=== PATIENT | male | born 1965 | race Caucasian/White ===

== ENCOUNTER 2016-09-13 20:02 | Observation (INO) | payer SELFPAY ==
[~2016-09-13] VITALS: Ht 188 cm; Wt 109.1 kg
--- NOTE | 2016-09-13 21:28 | DIAGNOSTIC IMAGING REPORT ---
PROCEDURE: XR CHEST 1 VIEW INDICATION: CHEST PAIN, initial encounter TECHNIQUE: Portable AP view 08:53 p.m. COMPARISON: None. FINDINGS: Poor inspiration. Lungs are clear. Heart and mediastinum are normal. Left AC joint degenerative changes. IMPRESSION: 1. Negative chest.
[2016-09-14] VITALS (7 sets, daily range): BP systolic 120–145; BP diastolic 64–95
--- NOTE | 2016-09-14 00:48 | Progress Note ---
Subjective General Admission History and Physical Examination Patient Name: Edvin Tineo Admission Date: September 14, 2016 Primary Care Provider: None Attending Physician: Niles Dee M.D. Admitting Physician: Niles Dee M.D. SUBJECTIVE Historian: Patient Reliability: Fair Chief Complaint: Chest pain History of Present Illness: The patient is a 51-year-old male with a significant past medical history of type 2 diabetes mellitus, hypertension, who presented to [facility] emergency department on the day prior to admission secondary to complaints of chest discomfort. [facility] ER evaluation was consistent with poorly controlled diabetes mellitus, chest pain rule out ACS. Secondary to the above, the patient was admitted by Niles Dee M.D. for further evaluation and treatment The history of present was began on the day of admission when the patient was apparently incarcerated in the [place] half-way. He developed substernal chest pain. There was no radiation of the pain. He stated the pain was increased by chest wall movement, and deep inspiration/coughing. He denied shortness of breath or diaphoresis. He has experienced nausea and vomited 3. Secondary to the above the patient was transported by [place] police to [facility] emergency department for further evaluation and treatment. [facility] ER evaluation showed normal cardiac enzymes, no acute ST-T wave changes. The patient experienced no significant change with the use of aspirin/nitroglycerin to his pain. Repeat EKG was unremarkable. Secondary to the patient's history he was admitted with a diagnosis of chest pain rule out ACS, poorly controlled diabetes mellitus for further evaluation and treatment. PAST MEDICAL HISTORY Illnesses: 1. Diabetes mellitus 2. Hypertension Allergies: 1. Morphine Medications: 1. Metformin 1000 mg by mouth twice a day (not recently taking) 2. Lisinopril 10 mg by mouth daily (not recently taking) 3. Neurontin 800 mg by mouth 3 times a day 4. Tramadol 50 mg by mouth every 6 hours when necessary pain 5. Vicodin 10/325 one by mouth every 6 hours when necessary pain Surgery: 1. Back surgery 2. Tonsillectomy Injuries: 1. Head injury Hospitalizations: 1. For above surgery and medical problems FAMILY HISTORY Parents: 1. Father, , 55, renal failure, 2. Mother, , 75, CVA Siblings: 1. The patient has 2 female siblings with history of COPD, liver disease, alcohol abuse Children: 1. Male, living, 20, healthy Other significant family history: None SOCIAL HISTORY 1. Marital Status: Single 2. Denominational: Sara 3. Education: 12th grade, GED 4. 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 Occupational health exposures: None HABITS 1. Tobacco: Previous use, amount unknown 2. Drugs: Marijuana 3. Alcohol: Occasional alcohol use no recent 4. Caffeine: 2-3 cups per day HEALTH SUPERVISION Item/Test 1. Not reviewed IMMUNIZATIONS: 1. Pneumococcal: 2016 2. Influenza: 2016 3. Tetanus: Unknown REVIEW OF SYSTEMS Remarkable for those things stated in the history of present illness and past medical history. Seventeen point review of system completed with the following notable findings: Eyes: Corrective lenses Nose: Discharge Cardiovascular: Hypertension Genitourinary: Urinary hesitancy Gastrointestinal: Diarrhea Musculoskeletal: Back ache Neurological: Peripheral neuropathy Psychological: Anxiety, insomnia Physical Exam General Appearance Alert, Oriented X3, Cooperative, No acute distress HEENT Atraumatic, PERRLA, EOMI, Moist mucous membranes Lungs Clear to auscultation, Normal air movement Neck Supple, No JVD, No masses Cardiovascular Regular rate and rhythm, Normal S1 and S2, No murmurs, gallops, rubs Abdomen Normal bowel sounds, Soft, No tenderness, No guarding Extremities No cyanosis, No clubbing, No edema Neurological Cranial nerves intact, Strength 5/5 x4 ext's, No lateralizing signs Psych/Mental Status Mental status normal, Mood normal LAB Results Laboratory Tests 09/13 Blood Gas Sample Site RR Total CO2 (24.0 - 30.0 mmol/L) 20.2 ABG pH (7.35 - 7.45) 7.47 ABG pCO2 at Pt Temp (35 - 45 mmHg) 26.5 ABG pO2 at Pt Temp (80.0 - 100.0 mmHg) 103.0 ABG HCO3 (20.0 - 26.0 mmol/L) 19.4 ABG O2 Sat Calc/Jimbo (95.1 - 100.0 %) 99.0 ABG Base Excess (-6.0 - -6.0 mmol/L) -3.4 ABG Reduced Hgb (%) 1.0 ABG Carboxyhemoglobin (0.5 - 1.5 %) 1.3 ABG Methemoglobin (0.4 - 1.5 %) 0.3 Caden Test YES Other Total Hgb (14.0 - 18.0 g/dL) 15.1 A-a O2 Gradient (7.0 - 14.0 mmHg) 17.9 Hgb O2 Saturation (95.0 - 100.0 %) 97.4 Respiration Rate (/MIN) 20 Vent Mode RA FiO2 (20 - 101 %) 21 Chemistry Plasma Sodium (136 - 145 mmol/L) 135 Plasma Potassium (3.5 - 5.1 mmol/L) 4.0 Plasma Chloride (98 - 107 mmol/L) 100 CO2 (Enzymatic) (21 - 32 mmol/L) 25 BUN (7 - 18 mg/dL) 16 Creatinine (0.6 - 1.3 mg/dL) 1.0 Est GFR ( Amer) (mL/min) >60 Est GFR (Non-Af Amer) (mL/min) >60 Glucose (70 - 110 mg/dL) 317 Plasma Calcium (8.5 - 10.1 mg/dL) 9.8 Plasma Magnesium (1.8 - 2.4 mg/dL) 2.1 Total Bilirubin (0.0 - 1.0 mg/dL) 0.7 AST (15 - 37 U/L) 17 ALT (12 - 78 U/L) 34 Alkaline Phosphatase (46 - 116 U/L) 92 Creatine Kinase (24 - 260 U/L) 193 Troponin (0.00 - 1.5 ng/mL) <0.05 B-Natriuretic Peptide (5 - 100 pg/ml) 12.5 Total Protein (6.4 - 8.2 g/dL) 8.9 Albumin (3.3 - 5.0 g/dL) 4.6 Coagulation D-Dimer, Quantitative (0.27 - 0.52 ug/mLFEU) 0.39 Hematology WBC (4.5 - 11.5 K/uL) 12.5 RBC (4.50 - 5.90 M/uL) 5.40 Hgb (13.5 - 17.5 gm/dL) 16.5 Hct (41.0 - 53.0 %) 50.0 MCV (80 - 100 fL) 93 MCH (26 - 34 pg) 31 RDW (11.6 - 14.8 %) 13.9 Neut % (Auto) (50 - 75 %) 76.8 Lymph % (Auto) (25 - 40 %) 17.7 [place] % (Auto) (3 - 14 %) 4.6 Eos % (Auto) (0 - 4 %) 0.1 Baso % (Auto) (0 - 2 %) 0.8 Plt Count, EDTA (150 - 400 K/uL) 406 PUBS MCHC (31 - 37 g/dL) 33 Toxicology Acetone, Qual (NEGATIVE) POSITIVE Imaging Chest X-Ray IMPRESSION: 1. Negative chest. Dictated by: BENEDICTO SUGGS MD D: PAT;09/13/[id number] Assessment and Plan Problem List 1. Chest pain Status Acute Onset Date Unknown Plan -Patient presents with findings of chest pain, rule out ACS -Serial troponin/CPK/EKG -Aspirin 325 mg by mouth daily -Lovenox -Nitroglycerin paste 1.5 inches topically every 6 hours -Lopressor 50 mg by mouth every 8 hours -Lipid profile in a.m. 2. Hypertension Status Chronic Onset Date Unknown Plan -Patient with history of hypertension -Patient's blood pressure poorly controlled at this time -Lopressor 50 mg by mouth every 8 hours -Nitroglycerin 1.5 inches topically every 6 hours -Begin BECKY inhibitor in a.m. -Monitor 3. Diabetes mellitus Status Chronic Onset Date Unknown Plan -Patient with long-standing history of diabetes mellitus -Check hemoglobin A1c in a.m. -Insulin sliding scale -Outpatient diabetic education 4. Back pain Status Chronic Onset Date Unknown Plan -Patient with chronic back pain -Continue Vicodin 5/325 1-2 by mouth every 4 hours when necessary pain 5. Diabetic neuropathy Status Chronic Onset Date Unknown Plan -Patient with history of diabetic neuropathy -Neurontin 300 mg by mouth 3 times a day with increasing dose as warranted -Monitor 6. Hypercholesterolemia Status Chronic Onset Date Unknown Plan -Patient with history of hypercholesterolemia -Check lipid profile in a.m. -Appropriate use of statins/cholesterol-lowering agents based on lipid profile -Low-cholesterol diet/low fat diet Current status: Fair, unstable Anticipated discharge date: Anticipated discharge in a.m. Anticipated discharge placement: Home Patient care time: Time spent in chart review, patient interview, physical exam, CPOE, and care documentation: 70 minutes Visit to patient today: 1 Complexity of care: High E&M Codes Admission: Obsv-Comp/High/[id number]
[2016-09-14] MEDS ORDERED: LISINOPRIL10 MG PO (01:44)
[2016-09-14] MEDS ORDERED: NORCO1 TAB PO (01:45)
[2016-09-14] MEDS ORDERED: METFORMIN HCL500 MG PO (01:45)
--- NOTE | 2016-09-14 02:59 | ED ORDER SUMMARY ---
..... Patient: NANCY GANDHI JR OrderSheet [facility] VisitID: [id number] [place] [address] 51y, M Registration Date/Time: 09/13/2016 ORDER SHEET Weight: 108.8 kg (stated) Allergies: No Known Drug Allergy GENERAL ORDERS: Chest 1V Urgent (20:35 09/13/2016 Douglas Amin) (Ack 20:37 TBergley) (21:22 MCampbell) Cardiac Panel Stat (20:36 09/13/2016 Douglas Amin) (Ack 20:37 TBergley) (20:44 EInderbitzen R.N.) BNP Urgent (20:36 09/13/2016 Douglas Amin) (Ack 20:37 TBergley) (20:44 EInderbitzen R.N.) D-Dimer Urgent (20:36 09/13/2016 Douglas Amin) (Ack 20:37 TBergley) (20:44 EInderbitzen R.N.) Acetone, Serum Urgent (20:36 09/13/2016 Douglas Amin) (Ack 20:37 TBergley) (20:44 EInderbitzen R.N.) ABG (G) Urgent (21:24 09/13/2016 Douglas Amin) (Ack 21:25 TBergley) (21:44 TBergley) EKG - ER Repeat Stat (22:38 09/13/2016 Olimpia DAVIDSON) (23:05 Brianekimana) POC Glucose (22:39 09/13/2016 Olimpia DAVIDSON) (22:48 EInderbitzen R.N.) Cardiac Panel Stat (01:51 09/14/2016 Carol Ann Wetzel verbal order read back to Douglas Amin) (1:51 Carol Ann R.N.) MEDICATION ORDERS: Aspirin PO 325 mg (Do not crush or chew, NOW) (20:35 09/13/2016 Douglas Amin) (21:12 EInderbitzen R.N.) NitroGLYCERIN Paste Topical 1 in. (NOW, to ) (20:35 09/13/2016 Douglas Amin) (21:12 EInderbitzen R.N.) NitroGLYCERIN SL 0.4 mg (NOW, x3 PRN Chest Pain) (22:35 09/13/2016 Olimpia DAVIDSON) (22:54 EInderbitzen R.N.) IV FLUIDS: IV NS : initial bolus none -, then 1000 mL/hr for X1 (NOW) (20:35 09/13/2016 Douglas Amin) (21:12 EInderbitzen R.N.) Insulin Reg IV 8 units (HIGH ALERT MEDICATION, NOW) (21:13 09/13/2016 Douglas Amin) (22:07 EInderbitzen R.N.) Toradol IV 30 mg (NOW) (21:23 09/13/2016 Douglas Amin) (22:08 EInderbitzen R.N.) ORDER SHEET NOTES: [Electronically signed by Hayder Avalos R.N. (02:59 09/14/2016)] [Electronically signed by Se Mancia MD (06:58 09/14/2016)] [Electronically locked/signed by Hayder Avalos R.N. (02:59 09/14/2016)]
--- NOTE | 2016-09-14 02:59 | ED CLINICAL REPORT ---
Clinical Report - Physicians/Mid Levels [facility] [address] [place] [address] 09/13/2016 20:03 Patient: NANCY GANDHI JR Time Seen: 2024. Arrived- By private vehicle. [facility] Historian- patient. HISTORY OF PRESENT ILLNESS Chief Complaint: CHEST PAIN. At its maximum, severity described as moderate. When seen in the E.D., severity described as moderate. Modifying factors. Not worsened by anything. Not relieved by anything. This started just prior to arrival Pt is currently incarcerated at the [facility]. At 5 pm he became dizzy. He has been off balance for one month. Chest hurting - at 630 pm he was resting and noticed a "knot in the chest" comes and goes with 40 -60 minute episodes . Now 5/10 Currently the chest pain is worse than his head ache, back ache or dizziness. and is still present. Onset during rest. It is described as pressure and Knot like and it is described as located in the central chest area. No radiation. The patient has had nausea. He has had vomiting (3 times). No diaphoresis. Similar symptoms previously: None. Recent medical care: Not recently seen/assessed. REVIEW OF SYSTEMS No fever, chills, cough, pedal edema or calf pain. No chills, fever, eye irritation, ear pain or cough. No diarrhea or difficulty with urination. He has had abdominal pain and pain, vomiting and back pain. "Heart backwards" by patient history but not our Xray. All systems otherwise negative, except as recorded above. PAST HISTORY PCP: None No local Hypertension. Diabetes Mellitus. ADDITIONAL SURGERIES: Back Surgery. Risk factors for heart disease- smoking, diabetes, elevated cholesterol and hypertension. Denies the following risk factors for heart disease - family history of heart disease. SOCIAL HISTORY Former smoker. Occasional alcohol use. No drug use. Residence: Homeless as of several days ago. He has had no meds for weeks. ADDITIONAL NOTES The nursing notes have been reviewed with agreement regarding the chief complaint, PMH and patient medications and allergies. PHYSICAL EXAM Vital Signs: 09/13/2016 20:04 BP: 178/115. HR: 109. RR: 18. O2 saturation: 100%. Temp: 98.1 F. Have been reviewed. Hypertensive. Tachycardic. Respiratory rate normal. Temperature normal. Oxygen saturation normal. Appearance: Alert. Oriented X3. No acute distress. Eyes: Eyes normal inspection. ENT: Dry mucous membranes present. Neck: Normal inspection. CVS: Normal heart rate and rhythm. Heart sounds normal. Respiratory: No respiratory distress. Breath sounds normal. Abdomen: Soft. Mild tenderness diffusely. No guarding or rebound tenderness. Bowel sounds normal. No organomegaly. No mass. No rebound tenderness or guarding. Skin: Skin warm and dry. Normal skin color. No rash. Normal skin turgor. Extremities: No calf tenderness. No lower extremity edema. Neuro: Oriented X 3. No motor deficit. LABS, X-RAYS, AND EKG EKG: EKG time: (2009). No acute ischemia. Narrow-complex tachycardia (ventricular rate 109). Sinus tachycardia. Normal P waves. Normal ASHIA. Normal QRS complex. Normal axis. Normal ST and T waves. Prolonged QTc (487). Prior EKG unavailable. The study has been interpreted contemporaneously by me. The study has been independently viewed by me. The EKG appears to be a good tracing. I agree with and confirm the computer reading of the EKG. Interpretation time: 2010. Chest X-ray: No acute disease. No infiltrate. (PROCEDURE: XR CHEST 1 VIEW INDICATION: CHEST PAIN, initial encounter TECHNIQUE: Portable AP view 08:53 p.m. COMPARISON: None. FINDINGS: Poor inspiration. Lungs are clear. Heart and mediastinum are normal. Left AC joint degenerative changes. IMPRESSION: 1. Negative chest. Electronically Final signed by:Marco A Villalobos MD 09/13/2016 9:28:16 PM). Views: AP. Technique: good. The X-rays were independently viewed by me and interpreted contemporaneously by me. Prior films were not available for comparison. Interpretation time: 21:10. Laboratory Tests: CBC w Diff: (ANDERSON: 09/13/2016 20:09) ( MsgRcvd 09/13/2016 20:46) Final results Test Result Flag Units (Reference) WHITE BLOOD COUNT 12.5 H K/uL (4.5-11.5) RED BLOOD COUNT 5.40 M/uL (4.50-5.90) HEMOGLOBIN 16.5 gm/dL (13.5-17.5) HEMATOCRIT 50.0 % (41.0-53.0) MEAN CELL VOLUME 93 fL (80-100) MEAN CORPUSCULAR HGB 31 pg (26-34) MEAN CORPUSCULAR HGB CONC 33 g/dL (31-37) RED CELL DISTRIBUTION WIDTH 13.9 % (11.6-14.8) PLATELET COUNT 406 H K/uL (150-400) NEUTROPHIL % 76.8 H % (50-75) LYMPH % 17.7 L % (25-40) MONO % 4.6 % (3-14) EOSINOPHIL % 0.1 % (0-4) BASOPHIL % 0.8 % (0-2) [id number]: (ANDERSON: 09/13/2016 20:09) ( [facility] [place] Final results Test Result Flag Units (Reference) D-DIMER QUANTITATIVE 0.39 ug/mLFEU (0.27-0.52) The primary value of this quantitative assay relates toits negative predictive value (i.e. exclusion) of pulmonaryembolism/deep vein thrombosis/DIC.Elevated levels of d-dimer may also occur with:, age, cancer, inflammation, liver disease,post-op, infection, hematoma, coronary disease, peripheralarteriopathy, bleeding disorders and thrombolytic treatment.Results should be correlated with other clinical andradiological data.Testing Methodology: Latex Immunoassay BNP: (ANDERSON: 09/13/2016 20:09) ( [facility] [place] 21:20) Final results Test Result Flag Units (Reference) B-TYPE NATRIURETIC PEPTIDE 12.5 pg/ml (5-100) Acetone, Serum: (ANDERSON: 09/13/2016 20:09) ( MsgRcvd 09/13/2016 20:47) Final results Test Result Flag Units (Reference) ACETONE, SERUM QUALITATIVE POSITIVE (NEGATIVE) CHEM 13 PANEL: (ANDERSON: 09/13/2016 20:09) ( MsgRcvd 09/13/2016 20:57) Final results Test Result Flag Units (Reference) GLUCOSE 317 H mg/dL (70-110) BUN 16 mg/dL (7-18) CREATININE 1.0 mg/dL (0.6-1.3) Estimated GFR >60 mL/min Estimated GFR- >60 mL/min Note: Persistent reduction over 3 months in eGFR<60 mL/min/1.73 m2 defines CKD. Patients with eGFR values>=60 mL/min/1.73 m2 may also have CKD if evidence ofpersistent proteinuria. Additional information may be foundat www.kidney.org. SODIUM 135 L mmol/L (136-145) POTASSIUM 4.0 mmol/L (3.5-5.1) CHLORIDE 100 mmol/L (98-107) CARBON DIOXIDE 25 mmol/L (21-32) CALCIUM 9.8 mg/dL (8.5-10.1) TOTAL PROTEIN 8.9 H g/dL (6.4-8.2) ALBUMIN 4.6 g/dL (3.3-5.0) BILIRUBIN, TOTAL 0.7 mg/dL (0.0-1.0) ALKALINE PHOSPHATASE 92 U/L (46-116) AST (SGOT) 17 U/L (15-37) ALT (SGPT) 34 U/L (12-78) MAGNESIUM 2.1 mg/dL (1.8-2.4) CPK 193 U/L (24-260) TROPONIN I <0.05 ng/mL (0.00-1.5) TROPONIN REFERENCE RANGE:<0.1 NEGATIVE0.1-1.5 INDETERMINANT>1.5 POSITIVE ABG: (ANDERSON: 09/13/2016 21:24) ( MsgRcvd 09/13/2016 21:41) Final results Test Result Flag Units (Reference) FIO2 21 % (20-101) ABG MODE OF DELIVERY RA MODIFIED ARIEL TEST POSITIVE? YES ABG PATIENT RESP RATE 20 /MIN ARTERIAL BLOOD GAS SITE RR ARTERIAL BLOOD GAS pH 7.47 H (7.35-7.45) ABG PCO2 26.5 L mmHg (35-45) ABG PO2 103.0 H mmHg (80.0-100.0) ABG BASE EXCESS -3.4 H mmol/L (-6.0--6.0) ABG HCO3 19.4 L mmol/L (20.0-26.0) ABG TCO2 20.2 L mmol/L (24.0-30.0) ABG [id number] 17.9 H mmHg (7.0-14.0) *NOTE: Normal rangeis based on aFIO2 of 21% ABG SAT O2 99.0 % (95.1-100.0) ABG TOTAL HEMOGLOBIN 15.1 g/dL (14.0-18.0) ABG O2 HEMOGLOBIN 97.4 % (95.0-100.0) ABG CARBOXYHEMOGLOBIN 1.3 % (0.5-1.5) ABG METHEMOGLOBIN 0.3 L % (0.4-1.5) ABG RHEMOGLOBIN 1.0 % . PROGRESS AND PROCEDURES Course of Care: Symptoms much better. Nitroglycerin 1 inch paste given. 21:25 09/13/16. case signed out to Dr. Mancia, likely in DKA, awaiting ABG. 22:14 09/13/16. Assumed Care from Dr Echevarria due to change of shift. Independent history and physical exam done./ R MD Gavino 23:41 09/13/16. Discussed with Dr Dee 06:49 09/14/16. The patient's chest pain is relatively low risk for ACS but in this setting the patient needs to be admitted and ruled out. He has diabetes in poor control and has no meds or testing material. He does have positive ketones but his bicarb is normal. This is poorly controlled DM not DKA. His glucose dropped rapidly after one dose of insulin. In fact he is homeless as well. There is a significant social aspect to this patient's medical issues. Disposition orders written. Disposition: Admitted. CLINICAL IMPRESSION CHEST PAIN DIABETES POOR CONTROL HOMELESSNESSNESS. (Electronically signed by Se Mancia MD 09/14/2016 6:58) Addenda for NANCY GANDHI JR VisitID: [id number] Date: 09/13/2016 09/14/2016 5:18 I personally performed the procedure as documented. pt admitted to hospital (Electronically signed by Hayder Avalos R.N. - 09/14/2016 5:18)
--- NOTE | 2016-09-14 02:59 | ED NURSING NOTES ---
Clinical Report - Nurses [facility] [address] [place] [address] 09/13/2016 20:03 Patient: NANCY GANDHI JR TRIAGE Triage time 20:Sep 13 2016. Acuity: LEVEL 3. Chief Complaint: CHEST PAIN and (LEFT UPPER ANTERIOR CHEST). SEPSIS SCREEN: Sepsis Screen: negative. Negative (no infection suspected/documented). --20:11 Kamille Thomason R.N. 20:04 09/13/16. BP: 178/115. HR: 109. RR: 18. O2 saturation: 100%. Temp: 98.1 F. Pain level now 06/11. --20:11 Kamille Thomason R.N. Weight: 108.8 kg stated. Height/Length: 74 inches Per Patient. BMI: 30.8. --20:07 Kamille Thomason R.N. Medications [place] Oral (Tablet 10-325 mg) 1 tablet, TID. --20:04 Kamille Thomason R.N. Lisinopril Oral (Tablet 10 mg) 1 tablet, daily. --20:05 Kamille Thomason R.N. MetFORMIN HCl Oral (Tablet 1000 mg) 1 tablet, 2x a day. --20:05 Kamille Thomason R.N. Allergies No Known Drug Allergy. --20:04 Kamille Thomason R.N. Medication/allergy information source: the patient. --20:11 Kamille Thomason R.N. History Historian: patient. Arrived in police custody. ( INMATE AT [facility]). This started today. ( PAIN IN LEFT LOWER QUADRANT, 3 EPISODES OF VOMITING TODAY. PAIN IN LEFT UPPER CHEST. HX OF DIABETES, HTN). No difficulty breathing, sweating episodes, nausea, vomiting or fever. No cough. 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 PAST MEDICAL HX: Immunizations: has received pneumonia vaccine. Has not received seasonal influenza immunization. SOCIAL HX: Former smoker. No alcohol use or drug use. No infectious disease exposure. ABUSE ASSESSMENT: No report of abuse. SELF HARM ASSESSMENT: A self harm assessment was performed. The patient answered "no" to the question "Have you recently felt down, depressed, or hopeless?", "Have you noticed less interest or pleasure in doing things?", "Do you have thoughts of harming or killing yourself?", "Are you here because you tried to hurt yourself?", "Have you ever tried to hurt yourself before today?", "Have you recently had thoughts about harming or killing others?" and "Do you have any dangerous items in your possession?". FALL RISK ASSESSMENT: Fall risk assessment completed. No fall risk identified. NUTRITIONAL RISK ASSESSMENT: The nutritional risk assessment revealed no deficiencies. FUNCTIONAL ASSESSMENT: Functional assessment: no impairments noted. LEARNING NEEDS ASSESSMENT: The learning needs assessment revealed no barriers. SKIN INTEGRITY ASSESSMENT: Skin integrity risk assessment completed. No skin integrity risk identified. --20:11 Kamille Thomason R.N. PROBLEMS: Hypertension. Diabetes Mellitus. --20:10 Kamille Thomason R.N. ADDITIONAL SURGERIES: Back Surgery. --20:10 Kamille Thomason R.N. Interventions ID band on patient. --20:11 Kamille Thomason R.N. PHYSICAL ASSESSMENT 20:04 09/13/16. Ambulatory to room. ( Patient states has chest pain but points to his groin when asked to show where it hurts. Also points to left upper chest wall. Pain is reproducible with position changes). GENERAL / NEURO / PSYCH: Alert. Oriented X 4. HEENT: Mucous membranes are pink. RESPIRATORY: Respirations not labored. Chest nontender. Breath sounds within normal limits. CVS: Normal sinus rhythm noted. Pulses within normal limits. Capillary refill less than 2 seconds. GI / : Abdomen soft and nontender. EXTREMITIES: No lower extremity edema. SKIN: Skin is warm and dry. Normal skin turgor. --20:41 Kamille Thomason R.N. NURSING PROGRESS NOTES 20:11 09/13/2016 Site #1 started via IV in the left antecubital space with an 20g angiocath, with aseptic technique and good blood return; one attempt. Blood drawn: rainbow set. Labeled in the presence of the patient and sent to the lab. Saline lock flushed with 10 mL saline. --20:11 Kamille Thomason R.N. EKG time: (2009). EKG was ordered, performed by a tech and shown to the ED physician. --20:19 Gael Funes, ER Supervisor Chassis Assembly 20:03 09/13/16. The initial plan of care for this patient includes an assessment with efforts to address the presence of pain; impairment of the cardiovascular and gastrointestinal system. This plan of care was discussed with the patient. color television console monitor, pulse oximeter and NIBP monitor placed on patient; cardiac tech- Lead II; monitor alarms on. Patient gowned. Two patient identifiers checked. Call light placed in reach. Side rails up x 1. Bed placed in lowest position. Brakes of bed on. Patient ready for evaluation. --20:40 Kamille Thomason R.N. 20:40 09/13/2016 Started bag #1 1000 mL IV Fluids IV NS (Saline); at 1000 mL/hr over 1 hour(s) via site #1. Allergies verified and confirmed 5 rights. IV patency established. IV site checked: no pain, redness, or swelling. IV flushed thoroughly pre- and post-medication administration. --21:11 Kamille Thomason R.N. 20:40 09/13/2016 Aspirin PO Tablets 324 mg given. Allergies verified and confirmed 5 rights. (chewable tablets). --21:12 Kamille Thomason R.N. 20:42 09/13/2016 NITROGLYCERIN PASTE Topical Paste 1 inch. Applied to the right upper arm. --21:12 Kamille Thomason R.N. 21:13 09/13/16. Cardiac rhythm: normal sinus rhythm. The patient is calm and resting quietly. RESPIRATORY: No respiratory distress. CVS: Normal sinus rhythm noted. SKIN: Skin is warm and dry. --21:13 Kamille Thomason R.N. 21:13 09/13/16. BP: 132/86. HR: 88. RR: 16. O2 saturation: 100%. Pain level now 10. --21:13 Kamille Thomason R.N. 22:02 09/13/16. Cardiac rhythm: normal sinus rhythm. The patient is calm and resting quietly. Overall patient status is the same- he states feels the same. CVS: Normal sinus rhythm noted. SKIN: Skin is warm and dry. Skin color within normal limits. --22:02 Kamille Thomason R.N. 22:02 09/13/16. BP: 123/59. HR: 79. RR: 18. O2 saturation: 100%. Pain level now 810. --22:02 Kamille Thomason R.N. 22:05 09/13/2016 Insulin REG IVP 8 unit given over 30 hour(s) via site #1. Allergies verified and confirmed 5 rights. IV patency established. IV site checked: no pain, redness, or swelling. IV flushed thoroughly pre- and post-medication administration. IVP given by RN. --22:07 Kamille Thomason R.N. 22:06 09/13/2016 Toradol IVP 30 mg given over 1 minute(s) via site #1. Allergies verified and confirmed 5 rights. IV patency established. IV site checked: no pain, redness, or swelling. IV flushed thoroughly pre- and post-medication administration. IVP given by RN. --22:08 Kamille Thomason R.N. 22:48 09/13/16. Finger stick glucose: 113; result shown to the ED physician. --22:48 Kamille Thomason R.N. 22:52 09/13/2016 Nitroglycerin SL Tablets 0.4 mg given. Allergies verified and confirmed 5 rights. --22:54 Kamille Thomason R.N. 22:57 09/13/16. Cardiac rhythm: normal sinus rhythm. --22:57 Kamille Thomason R.N. 22:57 09/13/16. BP: 123/73. HR: 93. RR: 18. Pain level now 7/10. --22:57 Kamille Thomason R.N. EKG time: (2252 PM). EKG was ordered, performed by a tech and shown to the ED physician. --23:05 gNa Aviles ( sandwich provided per MD request. pt accepted. pt c/o chest "ache not pain exactly" denies pain, refused nitro.). --23:10 Hayder Avalos R.N. Finger stick glucose: 1250: 208 mg/dL. --00:55 Nga Aviles 01:01 09/14/16. Care transferred and report given (to CHELE White). --01:01 Kamille Thomason R.N. ( PATIENT GIVEN H+P FORM). --01:23 Gael Funes, MICHAEL Supervisor Chassis Assembly. Locked/Released at 09/14/2016 2:59 by Hayder Avalos R.N.
--- NOTE | 2016-09-14 02:59 | ED ORDER SUMMARY ---
..... Patient: NANCY GANDHI JR OrderSheet [facility] VisitID: [id number] [place] [address] 51y, M Registration Date/Time: 09/13/2016 ORDER SHEET Weight: 108.8 kg (stated) Allergies: No Known Drug Allergy GENERAL ORDERS: Chest 1V Urgent (20:35 09/13/2016 Douglas Amin) (Ack 20:37 TBergley) (21:22 MCampbell) Cardiac Panel Stat (20:36 09/13/2016 Douglas Amin) (Ack 20:37 TBergley) (20:44 EInderbitzen R.N.) BNP Urgent (20:36 09/13/2016 Douglas Amin) (Ack 20:37 TBergley) (20:44 EInderbitzen R.N.) D-Dimer Urgent (20:36 09/13/2016 Douglas Amin) (Ack 20:37 TBergley) (20:44 EInderbitzen R.N.) Acetone, Serum Urgent (20:36 09/13/2016 Douglas Amin) (Ack 20:37 TBergley) (20:44 EInderbitzen R.N.) ABG (G) Urgent (21:24 09/13/2016 Douglas Amin) (Ack 21:25 TBergley) (21:44 TBergley) EKG - ER Repeat Stat (22:38 09/13/2016 Olimpia DAVIDSON) (23:05 Brianekimana) POC Glucose (22:39 09/13/2016 Olimpia DAVIDSON) (22:48 EInderbitzen R.N.) Cardiac Panel Stat (01:51 09/14/2016 Carol Ann Wetzel verbal order read back to Douglas Amin) (1:51 Carol Ann R.N.) MEDICATION ORDERS: Aspirin PO 325 mg (Do not crush or chew, NOW) (20:35 09/13/2016 Douglas Amin) (21:12 EInderbitzen R.N.) NitroGLYCERIN Paste Topical 1 in. (NOW, to ) (20:35 09/13/2016 Douglas Amin) (21:12 EInderbitzen R.N.) NitroGLYCERIN SL 0.4 mg (NOW, x3 PRN Chest Pain) (22:35 09/13/2016 Olimpia DAVIDSON) (22:54 EInderbitzen R.N.) IV FLUIDS: IV NS : initial bolus none -, then 1000 mL/hr for X1 (NOW) (20:35 09/13/2016 Douglas Amin) (21:12 EInderbitzen R.N.) Insulin Reg IV 8 units (HIGH ALERT MEDICATION, NOW) (21:13 09/13/2016 Douglas Amin) (22:07 EInderbitzen R.N.) Toradol IV 30 mg (NOW) (21:23 09/13/2016 Douglas Amin) (22:08 EInderbitzen R.N.) ORDER SHEET NOTES: [Electronically signed by Hayder Avalos R.N. (02:59 09/14/2016)] [Electronically signed by Se Mancia MD (06:58 09/14/2016)] [Electronically locked/signed by Hayder Avalos R.N. (02:59 09/14/2016)]
--- NOTE | 2016-09-14 02:59 | ED NURSING NOTES ---
Clinical Report - Nurses [facility] [address] [place] [address] 09/13/2016 20:03 Patient: NANCY GANDHI JR TRIAGE Triage time 20:Sep 13 2016. Acuity: LEVEL 3. Chief Complaint: CHEST PAIN and (LEFT UPPER ANTERIOR CHEST). SEPSIS SCREEN: Sepsis Screen: negative. Negative (no infection suspected/documented). --20:11 Kamille Thomason R.N. 20:04 09/13/16. BP: 178/115. HR: 109. RR: 18. O2 saturation: 100%. Temp: 98.1 F. Pain level now 06/11. --20:11 Kamille Thomason R.N. Weight: 108.8 kg stated. Height/Length: 74 inches Per Patient. BMI: 30.8. --20:07 Kamille Thomason R.N. Medications [place] Oral (Tablet 10-325 mg) 1 tablet, TID. --20:04 Kamille Thomason R.N. Lisinopril Oral (Tablet 10 mg) 1 tablet, daily. --20:05 Kamille Thomason R.N. MetFORMIN HCl Oral (Tablet 1000 mg) 1 tablet, 2x a day. --20:05 Kamille Thomason R.N. Allergies No Known Drug Allergy. --20:04 Kamille Thomason R.N. Medication/allergy information source: the patient. --20:11 Kamille Thomason R.N. History Historian: patient. Arrived in police custody. ( INMATE AT [facility]). This started today. ( PAIN IN LEFT LOWER QUADRANT, 3 EPISODES OF VOMITING TODAY. PAIN IN LEFT UPPER CHEST. HX OF DIABETES, HTN). No difficulty breathing, sweating episodes, nausea, vomiting or fever. No cough. 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 PAST MEDICAL HX: Immunizations: has received pneumonia vaccine. Has not received seasonal influenza immunization. SOCIAL HX: Former smoker. No alcohol use or drug use. No infectious disease exposure. ABUSE ASSESSMENT: No report of abuse. SELF HARM ASSESSMENT: A self harm assessment was performed. The patient answered "no" to the question "Have you recently felt down, depressed, or hopeless?", "Have you noticed less interest or pleasure in doing things?", "Do you have thoughts of harming or killing yourself?", "Are you here because you tried to hurt yourself?", "Have you ever tried to hurt yourself before today?", "Have you recently had thoughts about harming or killing others?" and "Do you have any dangerous items in your possession?". FALL RISK ASSESSMENT: Fall risk assessment completed. No fall risk identified. NUTRITIONAL RISK ASSESSMENT: The nutritional risk assessment revealed no deficiencies. FUNCTIONAL ASSESSMENT: Functional assessment: no impairments noted. LEARNING NEEDS ASSESSMENT: The learning needs assessment revealed no barriers. SKIN INTEGRITY ASSESSMENT: Skin integrity risk assessment completed. No skin integrity risk identified. --20:11 Kamille Thomason R.N. PROBLEMS: Hypertension. Diabetes Mellitus. --20:10 Kamille Thomason R.N. ADDITIONAL SURGERIES: Back Surgery. --20:10 Kamille Thomason R.N. Interventions ID band on patient. --20:11 Kamille Thomason R.N. PHYSICAL ASSESSMENT 20:04 09/13/16. Ambulatory to room. ( Patient states has chest pain but points to his groin when asked to show where it hurts. Also points to left upper chest wall. Pain is reproducible with position changes). GENERAL / NEURO / PSYCH: Alert. Oriented X 4. HEENT: Mucous membranes are pink. RESPIRATORY: Respirations not labored. Chest nontender. Breath sounds within normal limits. CVS: Normal sinus rhythm noted. Pulses within normal limits. Capillary refill less than 2 seconds. GI / : Abdomen soft and nontender. EXTREMITIES: No lower extremity edema. SKIN: Skin is warm and dry. Normal skin turgor. --20:41 Kamille Thomason R.N. NURSING PROGRESS NOTES 20:11 09/13/2016 Site #1 started via IV in the left antecubital space with an 20g angiocath, with aseptic technique and good blood return; one attempt. Blood drawn: rainbow set. Labeled in the presence of the patient and sent to the lab. Saline lock flushed with 10 mL saline. --20:11 Kamille Thomason R.N. EKG time: (2009). EKG was ordered, performed by a tech and shown to the ED physician. --20:19 Gael Funes, ER Act Tutor 20:03 09/13/16. The initial plan of care for this patient includes an assessment with efforts to address the presence of pain; impairment of the cardiovascular and gastrointestinal system. This plan of care was discussed with the patient. athletic monitor, pulse oximeter and NIBP monitor placed on patient; cardiac exercise specialist- Lead II; monitor alarms on. Patient gowned. Two patient identifiers checked. Call light placed in reach. Side rails up x 1. Bed placed in lowest position. Brakes of bed on. Patient ready for evaluation. --20:40 Kamille Thomason R.N. 20:40 09/13/2016 Started bag #1 1000 mL IV Fluids IV NS (Saline); at 1000 mL/hr over 1 hour(s) via site #1. Allergies verified and confirmed 5 rights. IV patency established. IV site checked: no pain, redness, or swelling. IV flushed thoroughly pre- and post-medication administration. --21:11 Kamille Thomason R.N. 20:40 09/13/2016 Aspirin PO Tablets 324 mg given. Allergies verified and confirmed 5 rights. (chewable tablets). --21:12 Kamille Thomason R.N. 20:42 09/13/2016 NITROGLYCERIN PASTE Topical Paste 1 inch. Applied to the right upper arm. --21:12 Kamille Thomason R.N. 21:13 09/13/16. Cardiac rhythm: normal sinus rhythm. The patient is calm and resting quietly. RESPIRATORY: No respiratory distress. CVS: Normal sinus rhythm noted. SKIN: Skin is warm and dry. --21:13 Kamille Thomason R.N. 21:13 09/13/16. BP: 132/86. HR: 88. RR: 16. O2 saturation: 100%. Pain level now 10. --21:13 Kamille Thomason R.N. 22:02 09/13/16. Cardiac rhythm: normal sinus rhythm. The patient is calm and resting quietly. Overall patient status is the same- he states feels the same. CVS: Normal sinus rhythm noted. SKIN: Skin is warm and dry. Skin color within normal limits. --22:02 Kamille Thomason R.N. 22:02 09/13/16. BP: 123/59. HR: 79. RR: 18. O2 saturation: 100%. Pain level now 810. --22:02 Kamille Thomason R.N. 22:05 09/13/2016 Insulin REG IVP 8 unit given over 30 hour(s) via site #1. Allergies verified and confirmed 5 rights. IV patency established. IV site checked: no pain, redness, or swelling. IV flushed thoroughly pre- and post-medication administration. IVP given by RN. --22:07 Kamille Thomason R.N. 22:06 09/13/2016 Toradol IVP 30 mg given over 1 minute(s) via site #1. Allergies verified and confirmed 5 rights. IV patency established. IV site checked: no pain, redness, or swelling. IV flushed thoroughly pre- and post-medication administration. IVP given by RN. --22:08 Kamille Thomason R.N. 22:48 09/13/16. Finger stick glucose: 113; result shown to the ED physician. --22:48 Kamille Thomason R.N. 22:52 09/13/2016 Nitroglycerin SL Tablets 0.4 mg given. Allergies verified and confirmed 5 rights. --22:54 Kamille Thomason R.N. 22:57 09/13/16. Cardiac rhythm: normal sinus rhythm. --22:57 Kamille Thomason R.N. 22:57 09/13/16. BP: 123/73. HR: 93. RR: 18. Pain level now 7/10. --22:57 Kamille Thomason R.N. EKG time: (2252 PM). EKG was ordered, performed by a tech and shown to the ED physician. --23:05 Nga Aviles ( sandwich provided per MD request. pt accepted. pt c/o chest "ache not pain exactly" denies pain, refused nitro.). --23:10 Hayder Avalos R.N. Finger stick glucose: 1250: 208 mg/dL. --00:55 Nga Aviles 01:01 09/14/16. Care transferred and report given (to CHELE White). --01:01 Kamille Thomason R.N. ( PATIENT GIVEN H+P FORM). --01:23 Gael Funes, MICHAEL Act Tutor. Locked/Released at 09/14/2016 2:59 by Hayder Avalos R.N.
--- NOTE | 2016-09-14 02:59 | ED CLINICAL REPORT ---
Clinical Report - Physicians/Mid Levels [facility] [address] [place] [place] [address] 09/13/2016 20:03 Patient: NANCY GANDHI JR Time Seen: 2024. Arrived- By private vehicle. [facility] Historian- patient. HISTORY OF PRESENT ILLNESS Chief Complaint: CHEST PAIN. At its maximum, severity described as moderate. When seen in the E.D., severity described as moderate. Modifying factors. Not worsened by anything. Not relieved by anything. This started just prior to arrival Pt is currently incarcerated at the [facility]. At 5 pm he became dizzy. He has been off balance for one month. Chest hurting - at 630 pm he was resting and noticed a "knot in the chest" comes and goes with 40 -60 minute episodes . Now 5/10 Currently the chest pain is worse than his head ache, back ache or dizziness. and is still present. Onset during rest. It is described as pressure and Knot like and it is described as located in the central chest area. No radiation. The patient has had nausea. He has had vomiting (3 times). No diaphoresis. Similar symptoms previously: None. Recent medical care: Not recently seen/assessed. REVIEW OF SYSTEMS No fever, chills, cough, pedal edema or calf pain. No chills, fever, eye irritation, ear pain or cough. No diarrhea or difficulty with urination. He has had abdominal pain and pain, vomiting and back pain. "Heart backwards" by patient history but not our Xray. All systems otherwise negative, except as recorded above. PAST HISTORY PCP: None No local Hypertension. Diabetes Mellitus. ADDITIONAL SURGERIES: Back Surgery. Risk factors for heart disease- smoking, diabetes, elevated cholesterol and hypertension. Denies the following risk factors for heart disease - family history of heart disease. SOCIAL HISTORY Former smoker. Occasional alcohol use. No drug use. Residence: Homeless as of several days ago. He has had no meds for weeks. ADDITIONAL NOTES The nursing notes have been reviewed with agreement regarding the chief complaint, PMH and patient medications and allergies. PHYSICAL EXAM Vital Signs: 09/13/2016 20:04 BP: 178/115. HR: 109. RR: 18. O2 saturation: 100%. Temp: 98.1 F. Have been reviewed. Hypertensive. Tachycardic. Respiratory rate normal. Temperature normal. Oxygen saturation normal. Appearance: Alert. Oriented X3. No acute distress. Eyes: Eyes normal inspection. ENT: Dry mucous membranes present. Neck: Normal inspection. CVS: Normal heart rate and rhythm. Heart sounds normal. Respiratory: No respiratory distress. Breath sounds normal. Abdomen: Soft. Mild tenderness diffusely. No guarding or rebound tenderness. Bowel sounds normal. No organomegaly. No mass. No rebound tenderness or guarding. Skin: Skin warm and dry. Normal skin color. No rash. Normal skin turgor. Extremities: No calf tenderness. No lower extremity edema. Neuro: Oriented X 3. No motor deficit. LABS, X-RAYS, AND EKG EKG: EKG time: (2009). No acute ischemia. Narrow-complex tachycardia (ventricular rate 109). Sinus tachycardia. Normal P waves. Normal ASHIA. Normal QRS complex. Normal axis. Normal ST and T waves. Prolonged QTc (487). Prior EKG unavailable. The study has been interpreted contemporaneously by me. The study has been independently viewed by me. The EKG appears to be a good tracing. I agree with and confirm the computer reading of the EKG. Interpretation time: 2010. Chest X-ray: No acute disease. No infiltrate. (PROCEDURE: XR CHEST 1 VIEW INDICATION: CHEST PAIN, initial encounter TECHNIQUE: Portable AP view 08:53 p.m. COMPARISON: None. FINDINGS: Poor inspiration. Lungs are clear. Heart and mediastinum are normal. Left AC joint degenerative changes. IMPRESSION: 1. Negative chest. Electronically Final signed by:Marco A Villalobos MD 09/13/2016 9:28:16 PM). Views: AP. Technique: good. The X-rays were independently viewed by me and interpreted contemporaneously by me. Prior films were not available for comparison. Interpretation time: 21:10. Laboratory Tests: CBC w Diff: (ANDERSON: 09/13/2016 20:09) ( MsgRcvd 09/13/2016 20:46) Final results Test Result Flag Units (Reference) WHITE BLOOD COUNT 12.5 H K/uL (4.5-11.5) RED BLOOD COUNT 5.40 M/uL (4.50-5.90) HEMOGLOBIN 16.5 gm/dL (13.5-17.5) HEMATOCRIT 50.0 % (41.0-53.0) MEAN CELL VOLUME 93 fL (80-100) MEAN CORPUSCULAR HGB 31 pg (26-34) MEAN CORPUSCULAR HGB CONC 33 g/dL (31-37) RED CELL DISTRIBUTION WIDTH 13.9 % (11.6-14.8) PLATELET COUNT 406 H K/uL (150-400) NEUTROPHIL % 76.8 H % (50-75) LYMPH % 17.7 L % (25-40) MONO % 4.6 % (3-14) EOSINOPHIL % 0.1 % (0-4) BASOPHIL % 0.8 % (0-2) [id number]: (ANDERSON: 09/13/2016 20:09) ( [facility] [place] 09/13/[place] 20:53) Final results Test Result Flag Units (Reference) D-DIMER QUANTITATIVE 0.39 ug/mLFEU (0.27-0.52) The primary value of this quantitative assay relates toits negative predictive value (i.e. exclusion) of pulmonaryembolism/deep vein thrombosis/DIC.Elevated levels of d-dimer may also occur with:, age, cancer, inflammation, liver disease,post-op, infection, hematoma, coronary disease, peripheralarteriopathy, bleeding disorders and thrombolytic treatment.Results should be correlated with other clinical andradiological data.Testing Methodology: Latex Immunoassay BNP: (ANDERSON: 09/13/2016 20:09) ( [facility] [place] 09/13/2016 21:20) Final results Test Result Flag Units (Reference) B-TYPE NATRIURETIC PEPTIDE 12.5 pg/ml (5-100) Acetone, Serum: (ANDERSON: 09/13/2016 20:09) ( MsgRcvd 09/13/2016 20:47) Final results Test Result Flag Units (Reference) ACETONE, SERUM QUALITATIVE POSITIVE (NEGATIVE) CHEM 13 PANEL: (ANDERSON: 09/13/2016 20:09) ( MsgRcvd 09/13/2016 20:57) Final results Test Result Flag Units (Reference) GLUCOSE 317 H mg/dL (70-110) BUN 16 mg/dL (7-18) CREATININE 1.0 mg/dL (0.6-1.3) Estimated GFR >60 mL/min Estimated GFR- >60 mL/min Note: Persistent reduction over 3 months in eGFR<60 mL/min/1.73 m2 defines CKD. Patients with eGFR values>=60 mL/min/1.73 m2 may also have CKD if evidence ofpersistent proteinuria. Additional information may be foundat [email or web address].org. SODIUM 135 L mmol/L (136-145) POTASSIUM 4.0 mmol/L (3.5-5.1) CHLORIDE 100 mmol/L (98-107) CARBON DIOXIDE 25 mmol/L (21-32) CALCIUM 9.8 mg/dL (8.5-10.1) TOTAL PROTEIN 8.9 H g/dL (6.4-8.2) ALBUMIN 4.6 g/dL (3.3-5.0) BILIRUBIN, TOTAL 0.7 mg/dL (0.0-1.0) ALKALINE PHOSPHATASE 92 U/L (46-116) AST (SGOT) 17 U/L (15-37) ALT (SGPT) 34 U/L (12-78) MAGNESIUM 2.1 mg/dL (1.8-2.4) CPK 193 U/L (24-260) TROPONIN I <0.05 ng/mL (0.00-1.5) TROPONIN REFERENCE RANGE:<0.1 NEGATIVE0.1-1.5 INDETERMINANT>1.5 POSITIVE ABG: (ANDERSON: 09/13/2016 21:24) ( MsgRcvd 09/13/2016 21:41) Final results Test Result Flag Units (Reference) FIO2 21 % (20-101) ABG MODE OF DELIVERY RA MODIFIED ARIEL TEST POSITIVE? YES ABG PATIENT RESP RATE 20 /MIN ARTERIAL BLOOD GAS SITE RR ARTERIAL BLOOD GAS pH 7.47 H (7.35-7.45) ABG PCO2 26.5 L mmHg (35-45) ABG PO2 103.0 H mmHg (80.0-100.0) ABG BASE EXCESS -3.4 H mmol/L (-6.0--6.0) ABG HCO3 19.4 L mmol/L (20.0-26.0) ABG TCO2 20.2 L mmol/L (24.0-30.0) ABG [id number] 17.9 H mmHg (7.0-14.0) *NOTE: Normal rangeis based on aFIO2 of 21% ABG SAT O2 99.0 % (95.1-100.0) ABG TOTAL HEMOGLOBIN 15.1 g/dL (14.0-18.0) ABG O2 HEMOGLOBIN 97.4 % (95.0-100.0) ABG CARBOXYHEMOGLOBIN 1.3 % (0.5-1.5) ABG METHEMOGLOBIN 0.3 L % (0.4-1.5) ABG RHEMOGLOBIN 1.0 % . PROGRESS AND PROCEDURES Course of Care: Symptoms much better. Nitroglycerin 1 inch paste given. 21:25 09/13/16. case signed out to Dr. Mancia, likely in DKA, awaiting ABG. 22:14 09/13/16. Assumed Care from Dr Echevarria due to change of shift. Independent history and physical exam done./ R MD Gavino 23:41 09/13/16. Discussed with Dr Dee 06:49 09/14/16. The patient's chest pain is relatively low risk for ACS but in this setting the patient needs to be admitted and ruled out. He has diabetes in poor control and has no meds or testing material. He does have positive ketones but his bicarb is normal. This is poorly controlled DM not DKA. His glucose dropped rapidly after one dose of insulin. In fact he is homeless as well. There is a significant social aspect to this patient's medical issues. Disposition orders written. Disposition: Admitted. CLINICAL IMPRESSION CHEST PAIN DIABETES POOR CONTROL HOMELESSNESSNESS. (Electronically signed by Se Mancia MD 09/14/2016 6:58) Addenda for NANCY GANDHI JR VisitID: [id number] Date: 09/13/2016 09/14/2016 5:18 I personally performed the procedure as documented. pt admitted to hospital (Electronically signed by Hayder Avalos R.N. - 09/14/2016 5:18)
[2016-09-14] MEDS ORDERED: GABAPENTIN800 MG PO (03:23)
[2016-09-14] MEDS ORDERED: LIPITOR10 MG PO (03:24)
[2016-09-14] MEDS ORDERED: IBUPROFEN600 MG PO (03:27)
--- NOTE | 2016-09-14 06:58 | ED MAR SUMMARY ---
..... Medication Administration Record [facility] [address] [place] [address] Patient: NANCY GANDHI Visit ID: [id number] 51y, M Weight: 108.8 kg Height/Length: 74 in BMI: 30.8 ALLERGIES: No Known Drug Allergy Start 20:40 09/13/2016 Kamille Thomason R.N. Medication Administered: IV NS (SALINE), Dose: IV Fluids over 1 hour(s), Rate: 1000 mL/hr, Dispensed: 1000 mL bag, Site: #1 left AC. Medication Ordered: IV NS : initial bolus none -, then 1000 mL/hr for X1 (NOW). Given 20:40 09/13/2016 Kamille Thomason R.N. Medication Administered: ASPIRIN [PO], Dose: 324 mg Tablets PO. Medication Ordered: Aspirin PO 325 mg (Do not crush or chew, NOW). Given 20:09/13/2016 Kamille Thomason R.N. Medication Administered: NITROGLYCERIN PASTE [TOPICAL], Dose: 1 in. Paste Topical. Medication Ordered: NitroGLYCERIN Paste Topical 1 in. (NOW, to CW). Given 22:05 09/13/2016 Kamille Thomason R.N. Medication Administered: INSULIN REG [IVP], Dose: 8 unit IVP over 30 hour(s), Site: #1 left AC. Medication Ordered: Insulin Reg IV 8 units (HIGH ALERT MEDICATION, NOW). Given 22:09/13/2016 Kamille Thomason R.N. Medication Administered: TORADOL [IVP], Dose: 30 mg IVP over 1 minute(s), Site: #1 left AC. Medication Ordered: Toradol IV 30 mg (NOW). Given 22:52 09/13/2016 Kamille Thomason R.N. Medication Administered: NITROGLYCERIN [SL], Dose: 0.4 mg Tablets SL. Medication Ordered: NitroGLYCERIN SL 0.4 mg (NOW, x3 PRN Chest Pain).
--- NOTE | 2016-09-14 06:58 | ED MED RECONCILIATION SUMMARY ---
Patient: OKSANA, NANCY DUNN Medication Reconciliation Report [facility] VisitID: [id number] [address] [place] [address] 51y, M Registration Date/Time: 09/13/2016 Weight: 108.8 kg Height/Length: 74 in. BMI: 30.8 ALLERGIES: No Known Drug Allergy The patient's Home Medications are listed below: THE FOLLOWING MEDICATIONS NEED TO BE RECONCILED: Lisinopril Oral (10 mg) 1 tablet, daily MetFORMIN HCl Oral (1000 mg) 1 tablet, 2x a day [place] Oral (10-325 mg) 1 tablet, TID The source(s) of the original Home Medication information: patient The following Medications were given to the patient in the Emergency Department: IV NS IV Fluids bolus 0, then 1000 mL/hr, administered: 09/13/2016 8:40:00 PM Aspirin [PO] PO 324 mg, administered: 09/13/2016 8:40:00 PM NITROGLYCERIN PASTE [TOPICAL] Topical 1 in., administered: 09/13/2016 8:42:00 PM Insulin REG [IVP] IVP 8 unit, administered: 09/13/2016 10:05:00 PM Toradol [IVP] IVP 30 mg, administered: 09/13/2016 10:06:00 PM Nitroglycerin [SL] SL 0.4 mg, administered: 09/13/2016 10:52:00 PM The following Medications were prescribed to the patient: None.
--- NOTE | 2016-09-14 06:58 | ED DISCHARGE INSTRUCTIONS ---
Patient: NANCY GANDHI JR General Instructions [facility] VisitID: [id number] [address] [place] [address] 51y, M Registration Date/Time: 09/13/2016 CHEST PAIN DIABETES POOR CONTROL HOMELESSNESSNESS. (Electronically signed by Se Mancia MD 09/14/2016 6:58)
--- NOTE | 2016-09-14 06:58 | ED MED RECONCILIATION SUMMARY ---
Patient: OKSANA, NANCY DUNN Medication Reconciliation Report [facility] VisitID: [id number] [address] [place] [address] 51y, M Registration Date/Time: 09/13/2016 Weight: 108.8 kg Height/Length: 74 in. BMI: 30.8 ALLERGIES: No Known Drug Allergy The patient's Home Medications are listed below: THE FOLLOWING MEDICATIONS NEED TO BE RECONCILED: Lisinopril Oral (10 mg) 1 tablet, daily MetFORMIN HCl Oral (1000 mg) 1 tablet, 2x a day [place] Oral (10-325 mg) 1 tablet, TID The source(s) of the original Home Medication information: patient The following Medications were given to the patient in the Emergency Department: IV NS IV Fluids bolus 0, then 1000 mL/hr, administered: 09/13/2016 8:40:00 PM Aspirin [PO] PO 324 mg, administered: 09/13/2016 8:40:00 PM NITROGLYCERIN PASTE [TOPICAL] Topical 1 in., administered: 09/13/2016 8:42:00 PM Insulin REG [IVP] IVP 8 unit, administered: 09/13/2016 10:05:00 PM Toradol [IVP] IVP 30 mg, administered: 09/13/2016 10:06:00 PM Nitroglycerin [SL] SL 0.4 mg, administered: 09/13/2016 10:52:00 PM The following Medications were prescribed to the patient: None.
--- NOTE | 2016-09-14 06:58 | ED MAR SUMMARY ---
..... Medication Administration Record [facility] [address] [place] [address] Patient: NANCY GANDHI Visit ID: [id number] 51y, M Weight: 108.8 kg Height/Length: 74 in BMI: 30.8 ALLERGIES: No Known Drug Allergy Start 20:40 09/13/2016 Kamille Thomason R.N. Medication Administered: IV NS (SALINE), Dose: IV Fluids over 1 hour(s), Rate: 1000 mL/hr, Dispensed: 1000 mL bag, Site: #1 left AC. Medication Ordered: IV NS : initial bolus none -, then 1000 mL/hr for X1 (NOW). Given 20:40 09/13/2016 Kamille Thomason R.N. Medication Administered: ASPIRIN [PO], Dose: 324 mg Tablets PO. Medication Ordered: Aspirin PO 325 mg (Do not crush or chew, NOW). Given 20:09/13/2016 Kamille Thomason R.N. Medication Administered: NITROGLYCERIN PASTE [TOPICAL], Dose: 1 in. Paste Topical. Medication Ordered: NitroGLYCERIN Paste Topical 1 in. (NOW, to CW). Given 22:05 09/13/2016 Kamille Thomason R.N. Medication Administered: INSULIN REG [IVP], Dose: 8 unit IVP over 30 hour(s), Site: #1 left AC. Medication Ordered: Insulin Reg IV 8 units (HIGH ALERT MEDICATION, NOW). Given 22:09/13/2016 Kamille Thomason R.N. Medication Administered: TORADOL [IVP], Dose: 30 mg IVP over 1 minute(s), Site: #1 left AC. Medication Ordered: Toradol IV 30 mg (NOW). Given 22:52 09/13/2016 Kamille Thomason R.N. Medication Administered: NITROGLYCERIN [SL], Dose: 0.4 mg Tablets SL. Medication Ordered: NitroGLYCERIN SL 0.4 mg (NOW, x3 PRN Chest Pain).
--- NOTE | 2016-09-14 06:58 | ED DISCHARGE INSTRUCTIONS ---
Patient: NANCY GANDHI JR General Instructions [facility] VisitID: [id number] [address] [place] [address] 51y, M Registration Date/Time: 09/13/2016 CHEST PAIN DIABETES POOR CONTROL HOMELESSNESSNESS. (Electronically signed by Se Mancia MD 09/14/2016 6:58)
--- NOTE | 2016-09-14 16:06 | Progress Note ---
Subjective General Patient is seen at the bedside, c/o severe headache, and back pain with on and off back pain, ACS r/o, refused to go home. Constitutional Denies: Fever, Chills, Sweats, Weakness. Respiratory Denies: Cough, Dry, SOB w/exertion, Wheezing. Cardiovascular Denies: Chest Pain, Palpitations, Orthopnea, PND, Edema. Gastrointestinal Denies: Nausea, Vomiting, Abdominal Pain, Diarrhea, Constipation. Genitourinary Denies: Dysuria, Frequency, Incontinence, Hematuria. Musculoskeletal Back Pain. Physical Exam Vital Signs / I&Os Vital Signs Date Time Temp Pulse Resp B/P Pulse O2 O2 Flow FiO2 Ox Delivery Rate 09/14 1507 98.1 64 16 127/79 96 Room Air 09/14 1014 98.1 62 20 120/64 97 Room Air 09/14 0653 97.9 62 19 127/68 98 Room Air 09/14 0519 98.1 75 16 128/69 98 09/14 0303 98.1 83 18 138/95 100 Room Air General Appearance Alert, Oriented X3, No acute distress HEENT Atraumatic, EOMI, Moist mucous membranes Lungs Clear to auscultation, Normal air movement Neck Normal exam, No JVD Cardiovascular Normal exam, Regular rate and rhythm, Normal S1 and S2 Abdomen Normal bowel sounds, Soft, No tenderness, No guarding Extremities No edema Skin No Breakdown Neurological No lateralizing signs LAB Results Laboratory Tests 09/132 2588 Blood Gas Sample Site RR Total CO2 (24.0 - 30.0 mmol/L) 20.2 ABG pH (7.35 - 7.45) 7.47 ABG pCO2 at Pt Temp (35 - 45 mmHg) 26.5 ABG pO2 at Pt Temp (80.0 - 100.0 mmHg) 103.0 ABG HCO3 (20.0 - 26.0 mmol/L) 19.4 ABG O2 Sat Calc/Jimbo (95.1 - 100.0 %) 99.0 ABG Base Excess (-6.0 - -6.0 mmol/L) -3.4 ABG Reduced Hgb (%) 1.0 ABG Carboxyhemoglobin (0.5 - 1.5 %) 1.3 ABG Methemoglobin (0.4 - 1.5 %) 0.3 Caden Test YES Other Total Hgb (14.0 - 18.0 g/dL) 15.1 A-a O2 Gradient (7.0 - 14.0 mmHg) 17.9 Hgb O2 Saturation (95.0 - 100.0 %) 97.4 Respiration Rate (/MIN) 20 Vent Mode RA FiO2 (20 - 101 %) 21 Chemistry Plasma Sodium (136 - 145 mmol/L) 135 Plasma Potassium (3.5 - 5.1 mmol/L) 4.0 Plasma Chloride (98 - 107 mmol/L) 100 CO2 (Enzymatic) (21 - 32 mmol/L) 25 BUN (7 - 18 mg/dL) 16 Creatinine (0.6 - 1.3 mg/dL) 1.0 Est GFR ( Amer) (mL/min) >60 Est GFR (Non-Af Amer) (mL/min) >60 Glucose (70 - 110 mg/dL) 317 Plasma Calcium (8.5 - 10.1 mg/dL) 9.8 Plasma Magnesium (1.8 - 2.4 mg/dL) 2.1 Total Bilirubin (0.0 - 1.0 mg/dL) 0.7 AST (15 - 37 U/L) 17 ALT (12 - 78 U/L) 34 Alkaline Phosphatase (46 - 116 U/L) 92 Creatine Kinase (24 - 260 U/L) 193 Troponin (0.00 - 1.5 ng/mL) <0.05 <0.05 B-Natriuretic Peptide (5 - 100 pg/ml) 12.5 Total Protein (6.4 - 8.2 g/dL) 8.9 Albumin (3.3 - 5.0 g/dL) 4.6 Coagulation D-Dimer, Quantitative (0.27 - 0.52 ug/mLFEU) 0.39 Hematology WBC (4.5 - 11.5 K/uL) 12.5 RBC (4.50 - 5.90 M/uL) 5.40 Hgb (13.5 - 17.5 gm/dL) 16.5 Hct (41.0 - 53.0 %) 50.0 MCV (80 - 100 fL) 93 MCH (26 - 34 pg) 31 RDW (11.6 - 14.8 %) 13.9 Neut % (Auto) (50 - 75 %) 76.8 Lymph % (Auto) (25 - 40 %) 17.7 [place] % (Auto) (3 - 14 %) 4.6 Eos % (Auto) (0 - 4 %) 0.1 Baso % (Auto) (0 - 2 %) 0.8 Plt Count, EDTA (150 - 400 K/uL) 406 PUBS MCHC (31 - 37 g/dL) 33 Toxicology Acetone, Qual (NEGATIVE) POSITIVE 09/14 09/14 09/14 09/14 0151 0454 [id number] Chemistry Plasma Sodium Cancelled Plasma Potassium Cancelled Plasma Chloride Cancelled CO2 (Enzymatic) Cancelled BUN Cancelled Creatinine Cancelled Est GFR ( Amer) Cancelled Est GFR (Non-Af Amer) Cancelled Glucose Cancelled Hemoglobin A1c % (4.5 - 6.2 %) 11.2 Plasma Calcium Cancelled Plasma Magnesium Cancelled Total Bilirubin Cancelled AST Cancelled ALT Cancelled Alkaline Phosphatase Cancelled Creatine Kinase Cancelled Troponin (0.00 - 1.5 ng/mL) Cancelled 0.06 Total Protein Cancelled Albumin Cancelled Triglycerides (30 - 200 mg/dL) 184 Cholesterol (140 - 200 mg/dL) 213 LDL Cholesterol, Calc (mg/dL) 143 HDL Cholesterol (32 - 96 mg/dL) 34 LDL/HDL Ratio 4.2 Cholesterol/HDL Ratio 6.3 Coronary Risk Interp (0.4 - 1.0) 1.2 Hematology WBC (4.5 - 11.5 K/uL) Cancelled 12.0 RBC (4.50 - 5.90 M/uL) Cancelled 4.65 Hgb (13.5 - 17.5 gm/dL) Cancelled 13.9 Hct (41.0 - 53.0 %) Cancelled 42.8 MCV (80 - 100 fL) Cancelled 92 MCH (26 - 34 pg) Cancelled 30 RDW (11.6 - 14.8 %) Cancelled 13.6 Neut % (Auto) (50 - 75 %) 68.0 Lymph % (Auto) (25 - 40 %) 24.0 [place] % (Auto) (3 - 14 %) 6.9 Eos % (Auto) (0 - 4 %) 0.8 Baso % (Auto) (0 - 2 %) 0.3 Plt Count, EDTA (150 - 400 K/uL) Cancelled 363 PUBS MCHC (31 - 37 g/dL) Cancelled 33 Microbiology Date/Time Procedure - Status Source Growth 09/14 0300 MRSA Screen - RECD NASAL Assessment and Plan Problem List 1. Chest pain Status Acute Onset Date Unknown Plan acs r/o Hba1c >11 cholesterola nd LDL is high c/w aspirin, beta leeroy and statin 2. Hypertension Status Chronic Onset Date Unknown Plan uncontrolled starte don metoprolol, moniotr for now 3. Diabetes mellitus Status Chronic Onset Date Unknown Plan uncontrlled HbA1c >11 will c/w insulin for now 4. Acute headache Plan c/o severe headache, c/o photophobia, patient with h/o migarine, says his headache is simlar to old headaches denies any blurred vision, lightheadedness no focal neurological deficit on exam hold NTG patch c/w vicodin for now 5. Hypercholesterolemia Status Chronic Onset Date Unknown Plan c/w statin Patient condition: Guarded Anticipated discharge: 1-2 days E&M Codes Rounding: Inpt-Moderate/[id number]
[2016-09-15 03:04] VITALS: BP 137/76
[2016-09-15 06:42] VITALS: BP 135/71
[2016-09-15 10:28] VITALS: BP 130/75
[2016-09-15] MEDS ORDERED: TAMSULOSIN HCL0.4 MG PO (13:33)
[2016-09-15] MEDS ORDERED: LISINOPRIL10 MG PO ×2 (13:34→13:40)
[2016-09-15] MEDS ORDERED: ASPIRIN ADULT L81 MG PO (13:37)
[2016-09-15] MEDS ORDERED: LOPRESSOR25 MG PO (13:40)
--- NOTE | 2016-09-15 13:48 | Provider's Discharge Care Plan ---
Problem, Goal, Plan Problem List 1. Chest pain Instructions: You were admitted with chest pain, Acute coronary syndrome ruled out, you need to get stress test as an outpatient 2. Diabetes mellitus Instructions: Your diabetes is uncontrolled, HbA1c is >11, you need to need to be compliant with your medications and diet and need to follow up with your PCP regularly 3. Hypertension Instructions: During hospital stay you were noted to have uncontrolled HTN for that your lisinopril dose has been increased and you are started on metoprolol 4. Urinary retention Instructions: You are started on flomax for urinary retention 5. Hypercholesterolemia Instructions: c/w statin
[2016-09-15] MEDS ORDERED: METFORMIN HCL500 MG PO (14:49)
[2016-09-15] MEDS ORDERED: NORCO1 TAB PO (14:49)
[2016-09-15] MEDS ORDERED: LIPITOR10 MG PO (14:49)
[2016-09-15] MEDS ORDERED: GABAPENTIN800 MG PO (14:49)
--- NOTE | 2016-09-18 10:37 | DISCHARGE SUMMARY ---
ADMIT DATE: 09/14/2016 DISCHARGE DATE: 09/15/2016 ADMITTING DIAGNOSES: 1. Chest pain, ruling out acute coronary syndrome 2. Hypertension 3. Diabetes DISCHARGE DIAGNOSES: 1. Atypical chest pain, acute coronary syndrome ruled out. 2. Uncontrolled diabetes mellitus 3. Uncontrolled hypertension 4. Back pain 5. Diabetic neuropathy BRIEF HISTORY: A 51-year-old male patient with past medical history of type 2 diabetes, hypertension, presented to [facility] Emergency Department on the day of admission secondary to complaints of chest discomfort. On initial evaluation, he was found to have poorly controlled diabetes with chest pain. For this reason, he was admitted to rule out acute coronary syndrome. HOSPITAL COURSE: The patient was admitted with chest pain. His troponins and EKGs were within normal limits. Acute coronary syndrome was ruled out. He was found to have uncontrolled diabetes, hypertension. For that, his home medications were adjusted. He also had urinary retention during hospitalization. For that, he had urinary catheterization done. On the day of discharge, he was able to urinate on his own. His symptoms improved and he was discharged home on appropriate medication and asked to have a stress test done as an outpatient. PHYSICAL EXAMINATION: VITAL SIGNS: At the time of discharge, his vitals were blood pressure 130/75, pulse rate 60, temperature 98, respiratory rate 18 per minute, O2 saturation 100%. GENERAL: He was alert, awake, and oriented x3. CHEST: Bilateral air entry equal. No significant rhonchi, crackles or wheezing heard. HEART: S1, S2, normal rate and rhythm. Regular. ABDOMEN: Soft, nontender. Bowel sounds present. EXTREMITIES: No edema. NEUROLOGIC: No gross neurological deficit noted. LAB/IMAGING: At the time of discharge were WBC 12, hemoglobin 13.9, hematocrit 42.8, neutrophils 68. Sodium 135, potassium 4, chloride 100, bicarbonate 25, BUN 16, creatinine 1, GFR more than 60, hemoglobin A1c 11.2, calcium 9.8, magnesium 2.1, total bilirubin 0.7, AST 17, ALT 34, alkaline phosphatase 92. Creatinine kinase 193. Troponins 3 sets negative on 0.05, 0.06, 0.05. BNP 12.5, total protein 8.9, albumin 4.6, triglycerides 184, cholesterol 213, LDL 143, HDL 34, Coronary risk 1.2. Chest x-ray: Negative chest. DISCHARGE MEDICATIONS/INSTRUCTIONS: You were admitted with chest pain and found to have uncontrolled diabetes and hypertension which is ruled out, you need to have a stress test as an outpatient and need to be compliant wiith medication and diet for diabetes, high blood pressure, high cholesterol.
== END 2016-09-15 15:20 | disposition home or self-care (01) ==
LOC: ED SRH 20:02 → TRANS SRH 09-14 00:27 → ACUTE2 SRH 09-14 00:27 → CC SRH 09-14 02:06 → ACUTE2 SRH 09-14 11:50
PROVIDERS: ADMIT Internal Medicine
DX: R07.9 Chest pain, unspecified (principal); E11.65 Type 2 diabetes mellitus with hyperglycemia; E11.40 Type 2 diabetes mellitus with diabetic neuropathy, unspecified; T38.3X6A Underdosing of insulin and oral hypoglycemic [antidiabetic] drugs, initial encounter; Z91.138 Patient's unintentional underdosing of medication regimen for other reason; I10 Essential (primary) hypertension; Z79.84 Long term (current) use of oral hypoglycemic drugs
CPT/HCPCS: 29230; 29244; 29251; 29253; 29264; 83475; 85241; 90004; 90074; 90098; 90100; 90301; 90616; 91286; 91320; 91556; 91672; 92132; 92610; 92690; 92720; 95059